=== PATIENT | female | born 1945 | race Caucasian/White ===

== ENCOUNTER 2024-03-17 18:13 | Emergency (ER) | payer OTHER ==
[2024-03-17 18:46] VITALS: BP 156/79; PULSE 84; RESP 18; TEMP 98.2; BMI 21.9
== END 2024-03-17 21:19 | disposition home or self-care (01) ==
LOC: JERFT 18:13
DX: S52.611A Displaced fracture of right ulna styloid process, initial encounter for closed fracture (principal); W01.0XXA Fall on same level from slipping, tripping and stumbling without subsequent striking against object, initial encounter
CPT/HCPCS: 73110-TC-RT-FY; 99283-25